=== PATIENT | female | born 1995 | race Caucasian/White ===

== ENCOUNTER 2016-12-13 15:36 | Emergency (ER) | payer SELFPAY ==
[2016-12-13] MEDS ORDERED: diphenhydrAMINE HCL 50 MG/ML VIAL IM ONE (15:59)
--- OUTSIDE RECORDS SUMMARY | 2016-12-13 16:04 | XMS REPORT | Continuity of Care Document ---
:1995 Author Organization [facility] ([facility]) Address [address] [place] [address] Phone [phone] Care Team Providers Name Role Phone Ray Muhammad Primary Care Provider [phone] Source Comments This disclosure is being made pursuant to the Care Everywhere program, applicable federal and state laws, and may not contain all informaitonavailable regarding this patient.[facility] ([facility]) Active Allergies and Adverse Reactions Not on File Current Medications Not on file Active Problems Not on file Social History Tobacco Use Types Packs/Day Years Used Date Never Assessed Plan of Care Health Maintenance Due Date Last Done Comments Hepatitis B Vaccine (1 of 3 - Primary Series) 1993 HPV Vaccine (1 of 3 - Female/Unknown 3 Dose Series) 2004 Tdap Vaccine 2004 Cervical Cancer Screening 12/31/2011 Lipid Disorder Screening 12/31/2011 MMR Vaccine 12/31/2011 Td Vaccine 12/31/2011 Varicella Vaccine (1 of 2 - Adult - No Evidence of 12/31/2011 Immunity) Influenza Vaccine: Seasonal (#1) 05/03/2016 Results from Last 3 Months Not on file
[2016-12-13] MEDS ORDERED: diphenhydrAMINE HCL 50 MG/ML VIAL ONE (16:06)
[2016-12-13 16:15] LABS: Hematocrit 44.6 % (37.0-47.0); Hemoglobin 15.9 gm/dL (12.5-16.0); Mean Cell Volume 86.4 fl (78-100); Mean Corpuscular Hemoglobin 30.8 pg (27-31); Mean Corpuscular Hgb Conc 35.7 g/dl (32-36); Mean Platelet Volume 11.2 fl (6.0-9.5); Neutrophil # 16.2 K/mm3 (1.3-6.0); Neutrophil % 79.6 % (42-75.0); Platelet Count 321 K/mm3 (150-450); Red Blood Count 5.16 M/mm3 (4.2-5.4); Red Cell Distribution Width 13.5 % (11.5-14.0); White Blood Count 20.4 K/mm3 (4.0-10.5)
[2016-12-13] MEDS ORDERED: METOPROLOL TARTRATE 1 MG/ML AMPUL IV ONE (16:25)
--- NOTE | 2016-12-13 16:27 | ERNOTE ---
Integumentary HPI - Narrative Date of Service: 12/13/16 - General Presenting Symptoms: rash Time Seen by Provider: 12/13/16 15:48 Source: patient Exam Limitations: no limitations - Immun/Allergies/Home Medications Immunizations: IMMUNIZATION HX Immunizations Up to Date Yes History of Influenza Vaccine Yes Hx Pneumococcal Vaccination No Allergies/Adverse Reactions: Allergies Allergy/AdvReac Type Severity Reaction Status Date / Time No Known Allergies Allergy Verified 12/13/16 15:48 Home Medications: HOME MEDICATIONS NK [No Home Medication] 12/13/16 [Last Taken Unknown] - History of Present Illness Narrative: Pt. comes in with c/o rash and shakiness for an hour and a half. Pt. denies any SOB, CP, NVD, but does state that she has taken meth twice since last night and that was her first time taking it. Pt. also smokes and drinks alcohol occasionally. Pt. denies any fevers or recent illness. Pt. denies any other exposure to new substances. Review of Systems - Review of Systems Constitutional: Present: no symptoms reported. Absent: recent illness, fever, chills, weakness, fatigue, malaise EYE: Present: no symptoms reported ENT: Present: no symptoms reported Respiratory: Present: no symptoms reported. Absent: shortness of breath, cough , wheezing Cardiology: Present: no symptoms reported. Absent: chest pain, palpitations, edema Gastrointestinal/Abdominal: Present: no symptoms reported - Genitourinary: Present: no symptoms reported Musculoskeletal: Present: no symptoms reported. Absent: back pain, joint pain Skin: Present: rash - B neck Neurological: Present: tingling - face and fingertips, other - tremors All Other Systems: All systems neg except as marked - Patient's Past Medical History Patient History - Medical: No pertinent hx, Anxiety Patient History - Cardiac/Respiratory: No pertinent hx Patient History - Cancer: No Hx of Cancer Patient History - Surgical Procedures: , T & A Patient History - Other: None - Family History Mother Family History - Medical: No pertinent hx Father Family History - Medical: No pertinent hx - Social History Living Situations: home Abuse History: No History of abuse Psych History: Hx of Anxiety Smoking Status: Current every day smoker Have you smoked in the past 12 months: Yes Do you dip or chew tobacco: No Alcohol Use: none Drug Use: none - Immunizations Immunizations Up to Date: Yes Hx Pneumococcal Vaccination: No History of Influenza Vaccine: Yes Physical Exam - Physical Exam General Appearance: Present: wd/wn, alert, no apparent distress Eye Exam: Normal inspection: bilateral, PERRL: bilateral, EOMI: bilateral Ears, Nose, Throat: Present: normal ENT inspection, normal pharynx Neck: Present: normal inspection, nontender. Absent: lymphadenopathy (R), lymphadenopathy (L) Respiratory: Present: no respiratory distress, normal breath sounds, no accessory muscle use, chest nontender, lungs clear Cardiovascular/Chest: Present: regular rate, rhythm, no murmur, normal peripheral pulses Gastrointestinal/Abdominal: Present: normal bowel sounds, nontender, nondistended, soft, no organomegaly Back Exam: Present: normal inspection, normal range of motion, no CVA tenderness , no vertebral tenderness Extremity Exam: Present: other - picking otero B dorsal hands Neurological Exam: Present: alert, oriented, no motor/sensory deficits, other - fine tremor. Absent: normal mood/affect - anxious Skin Exam: Present: normal color, warm/dry, skin rash - petichial. Absent: pallor ED Progress - Date and Time Seen: Date and Time: 12/13/16 17:17 Pt. with all the side effects of methamphetamine ingestion and withdrawl as pt. last ingestion early this am she should be back to normal 12 hours from now but may use more of her potassium so she needs followup tomorrow for recheck potassium. 12/13/16 19:31 Pt. tremors resolved and pt. states feeling better pt. also not tachycardiac or hypertensive any more - Results and Orders Patient's Lab Results:: I have reviewed the patient's lab results. Results and Orders: hypokalemia positive for amphetamines - Vital Signs Patient's Vital Signs:: I have reviewed the patient's vital signs. Vital Signs: Vital Signs 12/13/16 15:41 Temperature 37.2 C Pulse Rate 140 H Respiratory 18 Rate Blood Pressure 138/90 O2 Sat by Pulse 100 Oximetry - EKG EKG: other - sinus tach EKG read: Interp. by me EKG Comments: No st changes - Progress/Reassessment Chief Complaint: Rash Departure Clinical Impression: Methamphetamine use, Hypokalemia - Departure Disposition: Home self-care Condition: Good Instructions: Hypokalemia, Stimulant Use Disorder-Methamphetamines Additional Instructions: Please follow up with primary provider of your choice in 2-3 days. Please return here for repeat potassium level tomorrow.
[2016-12-13 16:29] LABS: Urine Bilirubin Negative (NEGATIVE); Urine Blood Negative /ul (NEGATIVE); Urine Ketone Negative (NEGATIVE); Urine Nitrite Negative (NEGATIVE); Urine Protein Negative (NEGATIVE); Urine Urobilinogen Normal (NORMAL)
[2016-12-13 16:37] LABS: ALT 40 U/L (19-67); AST 20 U/L (0-48); Albumin * 4.6 gm/dl (3.4-5.0); Alkaline Phosphatase * 95 U/L (50-170); Anion Gap 19.7 mmol/L (6.8-13.8); BUN/Creatinine Ratio 9.7 (9.0-21.6); Bilirubin, Total 0.9 mg/dL (0.0-1.1); Blood Urea Nitrogen 7 mg/dL (3-23); Ca. Corrected For Albumin 8.9 mg/dL (8.4-10.2); Calcium * 9.7 mg/dL (7.9-10.9); Carbon Dioxide 20.1 mmol/L (24-32.6); Chloride 100 mmol/L (97-106); Glucose * 106 mg/dL (70-110); Potassium 2.8 mmol/L (3.4-4.6); Sodium 137 mmol/L (132-142); Total Protein 8.5 gm/dL (6.2-8.2); Troponin I Less than 0.017 ng/ml (0.00-0.10)
[2016-12-13 16:40] LABS: Urine Appearance Clear; Urine Color Yellow
[2016-12-13 16:41] LABS: Urine Bacteria TRACE; Urine Other Crystal TRACE /hpf; Urine RBC None Seen /hpf (0-5); Urine WBC None Seen /hpf (0-5)
[2016-12-13] MEDS ORDERED: NORMAL SALINE 1,000 ML IV ONE (16:47)
[2016-12-13 16:48] LABS: Cocaine Ur Negative (NEGATIVE); Urine Barbiturate Negative (NEGATIVE); Urine Benzodiazepines Negative (NEGATIVE); Urine Opiates Negative (NEGATIVE); Urine PCP Negative (NEGATIVE); Urine THC Negative (NEGATIVE)
[2016-12-13] MEDS ORDERED: POTASSIUM CHLORIDE 20 MEQ TABLET.SA PO ONE (16:50)
[2016-12-13] MEDS ORDERED: POTASSIUM CHLORIDE 100 ML IV SCH ×2 (17:00)
[2016-12-13 17:02] LABS: Magnesium 1.8 mg/dL (1.2-2.8); Phosphorus 3.2 mg/dL (2.2-4.2)
[2016-12-13] MEDS ORDERED: POTASSIUM CHLORIDE 20 MEQ TABLET.SA ONE (17:04)
[2016-12-13] MEDS: POTASSIUM CHLORIDE 100 ML IV SCH ×2 (17:11→18:26)
[2016-12-13 19:45] VITALS: BP 131/83
== END 2016-12-13 19:43 | disposition home or self-care (01) ==
LOC: ER 15:36
DX: F15.90 Other stimulant use, unspecified, uncomplicated (principal); E87.6 Hypokalemia; Z72.0 Tobacco use

== ENCOUNTER 2017-02-14 15:07 | Emergency (ER) | payer SELFPAY ==
--- OUTSIDE RECORDS SUMMARY | 2017-02-14 16:03 | XMS REPORT | Continuity of Care Document ---
:1995 Author Organization [facility] ([facility]) Address [address] [place] [address] Phone [phone] Care Team Providers Name Role Phone Ray Muhammad Primary Care Provider [phone] Source Comments This disclosure is being made pursuant to the Care Everywhere program, applicable federal and state laws, and may not contain all informaitonavailable regarding this patient.[facility] ([facility]) Active Allergies and Adverse Reactions Not on [...]
--- NOTE | 2017-02-14 16:11 | ERNOTE ---
Lower Extremity HPI - Narrative Date of Service: 02/14/17 - General Lower Extremities Pain: 1st toe: left Time Seen by Provider: 02/14/17 15:53 Source: patient Exam Limitations: no limitations - Immun/Allergies/Home Medications Immunizations: IMMUNIZATION HX Immunizations Up to Date Yes History of Influenza Vaccine Yes Hx Pneumococcal Vaccination No Allergies/Adverse Reactions: Allergies Allergy/AdvReac Type Severity Reaction Status Date / Time No Known Allergies Allergy Verified 02/14/17 15:15 Home Medications: HOME MEDICATIONS Cephalexin Monohydrate [Keflex] 500 mg PO QID #40 cap 02/14/17 [Last Taken Unknown] - History of Present Illness Narrative: Pt. comes in with c/o L great toe pain and toe nail bent back three days ago when her opened the door on her foot. Pt. denies any numbness or tingling and states taht she is up to date on her tetanus vaccine. Pt. denies any SOB, CP, NVD, recent illness, alleviating factors, aggravating factors, or prehospital treatment. Review of Systems - Review of Systems Constitutional: Present: no symptoms reported. Absent: recent illness, fever, chills, weakness, fatigue EYE: Present: no symptoms reported ENT: Present: no symptoms reported. Absent: nose pain, nose congestion, nasal drainage, sore throat, throat swelling Respiratory: Present: no symptoms reported. Absent: shortness of breath, cough , wheezing Cardiology: Present: no symptoms reported. Absent: chest pain, palpitations, edema Gastrointestinal/Abdominal: Present: no symptoms reported. Absent: nausea, vomiting, diarrhea, abdominal pain Genitourinary: Present: no symptoms reported. Absent: frequency, decreased urinary output Musculoskeletal: Present: joint pain - L great toe Skin: Present: change in hair/nails - L great toe nail bent back Neurological: Present: no symptoms reported. Absent: headache, dizziness/light- headedness, numbness, tingling Endocrine: Present: no symptoms reported All Other Systems: All systems neg except as marked - Patient's Past Medical History Patient History - Medical: Anxiety Patient History - Cardiac/Respiratory: No pertinent hx Patient History - Cancer: No Hx of Cancer Patient History - Surgical Procedures: , T & A Patient History - Other: None - Family History Mother Family History - Medical: No pertinent hx Father Family History - Medical: No pertinent hx - Social History Living Situations: home Abuse History: No History of abuse Psych History: Hx of Anxiety Smoking Status: Current every day smoker Alcohol Use: none Drug Use: none - Immunizations Immunizations Up to Date: Yes Hx Pneumococcal Vaccination: No History of Influenza Vaccine: Yes Physical Exam - Physical Exam General Appearance: Present: wd/wn, alert, no apparent distress Eye Exam: Normal inspection: bilateral, PERRL: bilateral, EOMI: bilateral Ears, Nose, Throat: Present: normal ENT inspection, normal pharynx Neck: Present: normal inspection, nontender. 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 Absent: pallor, skin rash ED Progress - Date and Time Seen: Date and Time: 02/14/17 18:17 clipped toenail that was sticking up after anesthetizing with 1 % lidocaine 2 cc. Pt. tolerated well 02/14/17 18:18 - Results and Orders Patient's Lab Results:: I have reviewed the patient's lab results. - Vital Signs Patient's Vital Signs:: I have reviewed the patient's vital signs. Vital Signs: Vital Signs 02/14/17 02/14/17 15:08 15:43 Temperature 37.2 C 37.1 C Pulse Rate 87 84 Respiratory 12 12 Rate Blood Pressure 135/89 132/87 O2 Sat by Pulse 98 99 Oximetry - X-Ray X-Ray #1 X-Ray: foot Interpretation: Interp. by me X-ray Comments: lucency over L great toe distal that could be healing tuft fracture. - Progress/Reassessment Chief Complaint: Foot Injury/Pain Progress:: Unchanged Departure Clinical Impression: Fracture of distal phalanx of toe of left foot - Departure Disposition: Home self-care Condition: Good Instructions: Toe Fracture, Fingernail or Toenail Removal, Care After Additional Instructions: Please follow up with primary provider if no improvement in 2-3 days. Prescriptions: Cephalexin Monohydrate [Keflex] 500 mg PO QID #40 cap
[2017-02-14] MEDS ORDERED: LIDOCAINE HCL 20 ML VIAL ONE (16:15)
[2017-02-14] MEDS ORDERED: NAPROXEN SODIUM 550 MG TABLET ONE (19:12)
[2017-02-14] MEDS: NAPROXEN SODIUM 550 MG TABLET PO ONE (19:20)
[2017-02-14 19:44] VITALS: BP 126/82
== END 2017-02-14 19:37 | disposition home or self-care (01) ==
LOC: ER 15:07
DX: S92.422A Displaced fracture of distal phalanx of left great toe, initial encounter for closed fracture (principal); W20.8XXA Other cause of strike by thrown, projected or falling object, initial encounter; Y93.89 Activity, other specified; F17.210 Nicotine dependence, cigarettes, uncomplicated